=== PATIENT | male | born 2000 | race Caucasian/White ===

== ENCOUNTER 2022-03-22 14:43 | Emergency (ER) | payer OTHER ==
[2022-03-22 15:40] LABS: BASOPHIL 0.6 % (0-2); EOSINOPHIL 1.3 % (0-5); HCT 48.8 % (42.0-52.0); HGB 16.8 g/dl (13.2-18.0); LYMPHOCYTE 27.4 % (15-48); MCH 28.8 pg (25.0-31.0); MCHC 34.4 g/dL (32.0-36.0); MCV 83.6 fL (78.0-100.0); MONOCYTE 6.8 % (0-12); NEUTROPHIL 63.6 % (41-80); NRBC 0; PLT 214 K/uL (150-400); RBC 5.84 M/uL (4.70-6.00); RDW 12.4 % (11.5-14.0); WBC 6.7 K/uL (4.0-10.5)
[2022-03-22 16:13] LABS: ALBUMIN 4.7 g/dL (3.4-5.0); BILIRUBIN - TOTAL 0.6 mg/dL (0.2-1.0); CREATININE 1.08 mg/dL (0.67-1.17); GLOBULIN (CALCULATION) 2.7 g/dL; TOTAL PROTEIN 7.4 g/dL (6.4-8.2)
[2022-03-22 16:30] LABS: LACTIC ACID 0.9 mmol/L (0.4-1.9)
[2022-03-22] MEDS ORDERED: DICYCLOMINE HCL20 MG PO (18:30)
== END 2022-03-22 18:42 | disposition home or self-care (01) ==
LOC: FER 14:43
PROVIDERS: Emergency Medicine
DX: K92.1 Melena (principal)
CPT/HCPCS: 36415; 80053; 83605; 83690; 85025; 87040; Q9967

== ENCOUNTER → 2022-04-02 | Day surgery (SDC) | payer OTHER ==
[~2022-04-02] VITALS: Ht 170.2 cm; Wt 56.2 kg
[~2022-04-02] MED LIST: DICYCLOMINE HCL20 MG PO
== END | disposition home or self-care (01) ==
LOC: FAS 11:10
DX: K92.1 Melena (principal); K31.9 Disease of stomach and duodenum, unspecified
CPT/HCPCS: J2250; J2704; J7120